=== PATIENT | male | born 1975 | race Caucasian/White ===

== ENCOUNTER 2023-02-02 13:09 | Emergency (ER) | payer SELFPAY ==
[2023-02-02 13:17] VITALS: BP 161/103; PULSE 88; RESP 16; TEMP 36.6; O2SAT 98; BMI 31.7
[2023-02-02 14:05] VITALS: BP 153/97; PULSE 92; RESP 16; O2SAT 98
--- NOTE | 2023-02-02 14:27 | XRR_ITS ---
PROCEDURE INFORMATION: Exam: XR Right Tibia and Fibula Exam date and time: 02/02/2023 2:43 PM Age: 47 years old Clinical indication: Injury or trauma; Other: Dog bite; Laceration; Lower leg; Right; Foreign body involvement not specified; Additional info: Dog bite below right knee TECHNIQUE: Imaging protocol: Radiologic exam of the right tibia and fibula. Views: 2 views. COMPARISON: No relevant prior studies available. FINDINGS: Bones/joints: Normal. Soft tissues: Wound noted below the knee. No evidence of radiopaque foreign body. XR/XR tibia fibula RT 2V [id number] IMPRESSION: No evidence of radiopaque foreign body.
[2023-02-02] MEDS: amoxicillin-clav 875-125 mg Tablet 1 TAB PO (15:33)
[2023-02-02] MEDS: tetanus-dipt-pertussis 0.5 mL SDV IM (15:33)
--- NOTE | 2023-02-02 16:03 | ED_ITS ---
HPI - Animal Bite General: Chief Complaint: Animal Bite Stated Complaint: Dog bite Right leg Time Seen by Provider: 02/02/23 13:41 Source: patient Mode of arrival: ambulatory Limitations: no limitations History of Present Illness: Patient presents emergency department today for evaluation treatment of injury sustained after being bit by a dog on his right calf. 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 He states he has been in this area before and this dog has barked at him several times. However, today the dog bit his right proximal/lateral calf. He has had quite a bit of bleeding and presents with a bandage in place. He is not sure of his last tetanus immunization. He states that the owners were home and indicated the dog was up-to-date on shots however, he was informed that they had taken it to the vet and the dog has already been put down. Review of Systems General: Reports: 10 or more systems reviewed and unremarkable except in HPI and below Physical Exam Const: COMMON NORMALS: no acute distress, patient oriented x3 and alert HENMT: COMMON NORMALS: normocephalic, atraumatic and hearing grossly normal bilaterally HEAD & SCALP: normocephalic and atraumatic Eye: COMMON NORMALS: Equal, round and reactive pupils present, EOMs intact b ilaterally and conjunctivae normal CONJUNCTIVA: Yes conjunctivae normal PUPIL: Yes Equal, round and reactive pupils present Neck/C-Spine: COMMON NORMALS: full ROM and no JVD Lymph: LYMPHATIC: no lymphadenopathy noted Resp: COMMON NORMALS: normal respiratory effort, No retractions and No use of accessory muscles Cardio: COMMON NORMALS: no JVD and regular rate RATE: regular rate Extremity: NARRATIVE EXTREMITY EXAM: Patient is still ambulatory and weightbearing on the right lower extremity. There is swelling noted to the calf muscle but, no signs of foot drop from swelling on the franco. Neuro: COMMON NORMALS: patient oriented x3 SENSORIUM/ORIENTATION: Yes alert Psych: COMMON NORMALS: mental status grossly normal, Normal thought process present, cooperative and normal affect THOUGHT PROCESS: Normal thought process present Skin: COMMON NORMALS: no rashes or lesions noted and turgor normal GENERAL SKIN EXAM: no rashes or lesions noted and turgor normal OTHER: Patient has an area of 4 linear abrasions with dried blood present located to the right lateral proximal calf. Underneath this there is a laceration approximately 0.75 cm in length with wound edge separation approximately 3 mm. This is actively bleeding as well. The whole area is swollen but no signs of any large hematoma at this time. Course Vital Signs: Vital signs: Vital Signs Temperature 97.8 F 02/02/23 13:17 Pulse Rate 92 02/02/23 14:05 Respiratory Rate 16 02/02/23 14:05 Blood Pressure 153/97 02/02/23 14:05 Pulse Oximetry 98 02/02/23 14:05 Oxygen Delivery Me thod Room Air 02/02/23 14:05 MDM - Animal Bite Medical Decision Making Discussed with patient concerns for dog bites. Wounds were cleaned and bandaged here in the ER. We did update his tetanus immunization and started him on Augmentin. Explained to him that because the dog caused the laceration I do not recommend closing this wound as it is still moderately approximated and can heal by secondary intention. We discussed the importance of keeping the wounds clean and strict wound care and bandaging change instructions provided to him. Patient is not wanting to pursue rabies at this time which I think is appropriate. Patient was given strict return precautions for any acute concerns for worsening swelling, decreased sensation, blood flow, or ability to ambulate on the right lower extremity, or concerns for cellulitis. Patient verbalized understanding and agreement to treatment plan. Differential Diagnosis Likely bite by animal, dog bite and rabies contact Lab Data Radiology Impressions Tibia/Fibula X-Ray 02/02/23 14:27 IMPRESSION: No evidence of radiopaque foreign body. Discharge Plan Discharge Patient Disposition: Home Clinical Impression: Skin laceration, Abrasion of skin of right lower leg, Dog bite of right lower leg Condition: Stable Prescriptions: New amoxicillin-pot clavulanate 875-125 mg tablet 1 tab PO BID Qty: 20 0RF Discharge Orders: Discharge ED (Routine); Ordered 02/02/23 Ordered By: Aditi Benz Referrals: Ne Farah [Primary Care Provider] - Discharge Diet: Usual diet Discharge Activity: Increase activity as tolerated Patient Instructions: Animal Bite (ED) Activity Restrictions/Additional Instructions: X-ray today shows no signs of any deep air/gas concerning for development of deeper infection but, you have significant amount of swelling to the soft tissues on the lateral portion of your right calf. I do expect this area to be more swollen and more tender over the next couple of days as is typical following a dog bite. However, it is very important that we treat these wounds to prevent infection. You do have a laceration that otherwise would most likely receive stitches but, due to the increased risk of infection from dog bites, these are typically left open to heal. You need to wash these wounds at least twice if not 3 times a day with warm water and mild soap. Clean bandaging needs to be applied and kept over these wounds until they are healed. We are starting you on antibiotics to cover for specific bacteria often found in the mouth of dogs. We also updated your tetanus immunization. Since the animal was destroyed and since owners indicate patient dog was up-to-date on all immunizations, I do think it is appropriate to forego rabies prophylaxis treatment today. However, you need to watch carefully for any sudden redness of these wounds, draining of a thick green or yellow material, any new onset fever, or inability to bear weight or ambulate due to pain of your right lower extremity. Coding Level of Care Code ED Disc Pad Grinding Machine Feeder for Brittani Bermeo
== END 2023-02-02 15:40 | disposition home or self-care (01) ==
PROVIDERS: Emergency Provider Physician Assistant; PCP Nurse Practitioner Family
DX: S81.851A Open bite, right lower leg, initial encounter (principal); W54.0XXA Bitten by dog, initial encounter; Z23 Encounter for immunization
CPT/HCPCS: 73590; 90471; 90715; 99283